=== PATIENT | male | born 1945 | race Caucasian/White ===

== ENCOUNTER 2021-07-26 08:56 | Day surgery (SDC) | payer OTHER, SELFPAY ==
[2021-07-20 13:15] VITALS: BMI 32.2
--- NOTE | 2021-07-25 10:31 | P.CONAN_ITS ---
Documented by User: Kiera Mcintosh NP 07/25/21 10:31 HPI - Anesthesia Eval Consult details Narrative: 76yo M for Colonoscopy hx of throat ca with surgery PMFSH Past Medical History Medical History (Updated 07/26/21 @ 10:07 by Bianca Burt RN) Asymptomatic PVCs GERD (gastroesophageal reflux disease) PVCs (premature ventricular contractions) Skin cancer Throat cancer Surgical History Surgical History (Updated 07/20/21 @ 13:15 by Pati Vásquez RN) History of appendectomy History of local excision of skin lesion Hx of colonoscopy Hx of endoscopy Hx of surgical procedure Social History Social History Patient Tobacco Use Status: Former Tobacco user Tobacco use type: Cigarette Use of substances other than those prescribed or required for medical reasons: Yes Substance Use Type Other:: drinks 6 beers a week Are you DNR?: No Advance Directives: No Advance Directives Information Provided: Yes Nutrition Risks: No Nutritional Risk Meds Allergies Allergy/AdvReac Type Severity Reaction Status Date / Time amoxicillin Allergy Unknown Verified 07/26/21 09:37 Iodinated Contrast Media Allergy Hives Verified 07/26/21 09:37 [IV Contrast Dye] iohexol [From Omnipaque] Allergy Unknown Verified 07/26/21 09:37 lisinopril [From Zestril] Allergy Unknown Verified 07/26/21 09:37 Penicillins [PCN] Allergy Unknown Verified 07/26/21 09:37 sulfamethoxazole Allergy Unknown Verified 07/26/21 09:37 [From Bactrim] trimethoprim [From Bactrim] Allergy Unknown Verified 07/26/21 09:37 Home Medications Medication Instructions Recorded Confirmed Last Taken Type fluoride (sodium) 1.1 % dental PO DAILY 07/20/21 07/20/21 Unknown History paste (Sodium Fluoride 5000 Dry Mouth) lactobacillus comb no.10 20 20,000 mmu cells PO DAILY 07/20/21 07/20/21 Unknown History billion cell capsule (Probiotic) kgmwnfpqkdao-jeirfwfy-ymorsa tablet 1 tab PO DAILY 07/20/21 07/20/21 Unknown History omeprazole 20 mg capsule,delayed 1 cap PO BID 07/20/21 07/20/21 07/26/21 History release rosuvastatin 20 mg tablet 1 tab PO DAILY 07/20/21 07/20/21 Unknown History trazodone 50 mg tablet 1 tab PO BEDTIME 07/20/21 07/20/21 Unknown History Exam Exam Date and Time: July 25, 2021 1031 Height,Weight and Vital Signs: Height 5 ft 8 in Weight 96.162 kg Assessment and Plan Assessment Anesthesia Assessment: Chart Reviewed Documented by User: Pablo Jones MD 07/26/21 17:25 HPI - Anesthesia Eval Consult details Narrative: 76yo M for Colonoscopy As per patient history of PVC s , asymptomatic , saw regulatory affairs spec 5 years , no further workup . JAVIER on CPAP . s/p vocal card surgery hx of throat ca PMFSH Past Medical History Medical History (Updated 07/26/21 @ 10:07 by Bianca Burt RN) Asymptomatic PVCs GERD (gastroesophageal reflux disease) PVCs (premature ventricular contractions) Skin cancer Throat cancer Functional capacity: independent ambulation Family History Family history of problems with anesthesia: No Surgical History Surgical History (Updated 07/20/21 @ 13:15 by Pati Vásquez RN) History of appendectomy History of local excision of skin lesion Hx of colonoscopy Hx of endoscopy Hx of surgical procedure History of Problems with Anesthesia: No Social History Social History Patient Tobacco Use Status: Former Tobacco user Tobacco use type: Cigarette Use of substances other than those prescribed or required for medical reasons: Yes Substance Use Type Other:: drinks 6 beers a week Are you DNR?: No Advance Directives: No Advance Directives Information Provided: Yes Nutrition Risks: No Nutritional Risk Meds Allergies Allergy/AdvReac Type Severity Reaction Status Date / Time amoxicillin Allergy Unknown Verified 07/26/21 09:37 Iodinated Contrast Media Allergy Hives Verified 07/26/21 09:37 [IV Contrast Dye] iohexol [From Omnipaque] Allergy Unknown Verified 07/26/21 09:37 lisinopril [From Zestril] Allergy Unknown Verified 07/26/21 09:37 Penicillins [PCN] Allergy Unknown Verified 07/26/21 09:37 sulfamethoxazole Allergy Unknown Verified 07/26/21 09:37 [From Bactrim] trimethoprim [From Bactrim] Allergy Unknown Verified 07/26/21 09:37 Home Medications Medication Instructions Recorded Confirmed Last Taken Type fluoride (sodium) 1.1 % dental PO DAILY 07/20/21 07/20/21 Unknown History paste (Sodium Fluoride 5000 Dry Mouth) lactobacillus comb no.10 20 20,000 mmu cells PO DAILY 07/20/21 07/20/21 Unknown History billion cell capsule (Probiotic) ulcusfdmlpsa-qfzmaxvt-upifsi tablet 1 tab PO DAILY 07/20/21 07/20/21 Unknown History omeprazole 20 mg capsule,delayed 1 cap PO BID 07/20/21 07/20/21 07/26/21 History release rosuvastatin 20 mg tablet 1 tab PO DAILY 07/20/21 07/20/21 Unknown History trazodone 50 mg tablet 1 tab PO BEDTIME 07/20/21 07/20/21 Unknown History Exam Airway Mallampati Class: III TM Dist: >3cm Neck ROM: Full Loose/Missing/Broken Teeth: Yes (Chipped , cap ) Heart: rrr Lungs: bl breath sounds Assessment and Plan Assessment Anesthesia Assessment: Anesthesia Plan Discussed Final Anesthetic Review Family History of Problems with Anesthesia: No History of Problems with Anesthesia: No NPO: Yes ASA Class: III Patient Risk: Intermediate Procedure Risk: Intermediate Anesthetic Plan Anesthetic Plan: MAC: Disposition: Standard PACU
[2021-07-26 09:31] VITALS: BMI 31.9
[2021-07-26 09:44] VITALS: BP 151/83; PULSE 87; RESP 16; TEMP 36.9; O2SAT 95
--- NOTE | 2021-07-26 09:54 | ECG_ITS ---
Test Reason : irreg heartbeat Blood Pressure : / mmHG Vent. Rate : 080 BPM Atrial Rate : 080 BPM P-R Int : 138 ms QRS Dur : 086 ms QT Int : 372 ms P-R-T Axes : 059 002 012 degrees QTc Int : 429 ms Sinus rhythm with frequent Premature ventricular complexes Poor R progression anteriorly; cannot exclude old anterior infarct, but could be from body habitus/lead placement Abnormal ECG No previous ECGs available Referred By: Pablo Jones Electronically Signed By:MAYELIN ROBERTS
[2021-07-26] MEDS: Lactated Ringers 1,000 ML 80 ML IVCONT (10:02)
--- NOTE | 2021-07-26 10:04 | PC.NURSE ---
PATIENT STATES HE HAS AN EXTRA HEART BEAT BUT UNKNOWN OF WHAT KIND. USUALLY SEEN AT [facility]. BASELINE EKG BEING PERFORMED. ASYMPTOMATIC. MD [facility]ARK AWARE. PATIENT STATES IT WAS TOLD TO HIM 5 YEARS AGO BUT NOTHING WAS NEEDED TO BE DONE.
--- NOTE | 2021-07-26 10:28 | MHC.SHP ---
Pre-Procedural Eval Section A Date of Service: 07/26/21 The patient is an INPATIENT: No Changes since office visit: No Cold of Flu in the past 2 weeks, No New Medical Problems, No Changes in Medication and No Patient answered all questions The History & Physical has been completed within 30 days and I have reviewed it.: Yes Section B Chief Complaint: screening Allergies: Allergies Allergy/AdvReac Type Severity Reaction Status Date / Time amoxicillin Allergy Unknown Verified 07/26/21 09:37 Iodinated Contrast Media Allergy Hives Verified 07/26/21 09:37 [IV Contrast Dye] iohexol [From Omnipaque] Allergy Unknown Verified 07/26/21 09:37 lisinopril [From Zestril] Allergy Unknown Verified 07/26/21 09:37 Penicillins [PCN] Allergy Unknown Verified 07/26/21 09:37 sulfamethoxazole Allergy Unknown Verified 07/26/21 09:37 [From Bactrim] trimethoprim [From Bactrim] Allergy Unknown Verified 07/26/21 09:37 Plan I have reviewed the history and physical and performed a pertinent physical examination on my patient. No changes have occurred unless specified.
--- NOTE | 2021-07-26 11:32 | P.BOP_ITS ---
Brief Operative Note Date of Service: 07/26/21 Pre-op diagnosis: screening Post-op diagnosis: same (colon polyps) Procedure: colonoscopy Surgeon: Aime Mauro Anesthesia: MAC Was an Pharmacist Intern used for this Procedure?: No Estimated blood loss (mL): 5 Pathology: other (multiple polyps) Condition: stable Disposition: PACU
[2021-07-26 11:39] VITALS: BP 114/69; PULSE 95; RESP 17; TEMP 36.4; O2SAT 96
[2021-07-26 11:54] VITALS: BP 123/80; PULSE 86; RESP 18; TEMP 36.4; O2SAT 97
--- NOTE | 2021-07-26 12:23 | OP_ITS ---
SURGEON: Aime Mauro MD INDICATIONS: Colon cancer screening and prior history of adenomatous colon polyps. PREOPERATIVE DIAGNOSIS: POSTOPERATIVE DIAGNOSIS: PROCEDURE PERFORMED: Colonoscopy to the terminal ileum with snare polypectomy. ESTIMATED BLOOD LOSS: COMPLICATIONS: ANESTHESIA: ASSISTANTS: SPECIMENS: MEDICATIONS: Monitored anesthesia care. DESCRIPTION OF PROCEDURE: History and physical were performed. The risks and benefits of the procedure were explained to the patient. Informed consent was obtained. The patient was placed in the left lateral decubitus position. A digital rectal exam was performed and was found to be normal. The Olympus pediatric video colonoscope was introduced into the rectum and advanced to the cecum without difficulty. The cecum was identified by transillumination, palpation, and identification of ileocecal valve. Examination was performed. The scope was removed. He tolerated the procedure well and was sent to recovery area in stable condition. FINDINGS: The terminal ileum was normal. The visualized colonic mucosa was normal. Multiple colonic polyps were present. At 75 cm, 1 polyp was snared measuring 6 mm. At 65 cm, 3 polyps were snared measuring 8 mm or less. At 50 cm was a 6 mm polyp, which was snared. At 45 cm a less than 5 mm polyp was removed with a snare. In the rectum were 3 polyps, the largest measured approximately 12 mm, this was snared, 2 less than 10 mm polyps were also snared. There was sigmoid diverticulosis. The prep was good. IMPRESSION: Colon polyps. RECOMMENDATION: Follow up the biopsy results. MD SHERRI Delgado/MARTI / [id number] [facility]INE HOSPITALNathalie
== END 2021-07-26 12:31 | disposition home or self-care (01) ==
PROVIDERS: PCP Internal Medicine; Visit Provider Internal Medicine Gastroenterology
PROC: 0DJD8ZZ Inspection of Lower Intestinal Tract, Via Natural or Artificial Opening Endoscopic (ICD-10-PCS; CPT 45378; principal; 2021-07-26 10:20)
DX: Z12.11 Encounter for screening for malignant neoplasm of colon (principal); Z86.010 Personal history of colon polyps; D12.0 Benign neoplasm of cecum; D12.4 Benign neoplasm of descending colon; D12.5 Benign neoplasm of sigmoid colon; D12.8 Benign neoplasm of rectum; K57.30 Diverticulosis of large intestine without perforation or abscess without bleeding; K21.9 Gastro-esophageal reflux disease without esophagitis; I49.3 Ventricular premature depolarization; Z79.899 Other long term (current) drug therapy; Z85.828 Personal history of other malignant neoplasm of skin; Z85.819 Personal history of malignant neoplasm of unspecified site of lip, oral cavity, and pharynx; Z98.890 Other specified postprocedural states; Z87.891 Personal history of nicotine dependence
CPT/HCPCS: 45385; 88305; 93005

== ENCOUNTER 2023-06-08 10:39 | Day surgery (SDC) | payer OTHER, SELFPAY ==
[2023-06-06 13:05] VITALS: BMI 28.9
--- NOTE | 2023-06-07 11:00 | P.CONAN_ITS ---
HPI - Anesthesia Eval Consult details Narrative: 78yo M for Colonoscopy From 2021 anesthesia preop eval: per patient history of PVC s , asymptomatic , saw social media coordinator 5 years , no further workup . JAVIER on CPAP . s/p vocal card surgery d/t throat ca PMFSH Past Medical History Medical History (Updated 07/26/21 @ 10:07 by Bianca Burt RN) Asymptomatic PVCs PVCs (premature ventricular contractions) GERD (gastroesophageal reflux disease) Throat cancer Skin cancer Family History Family history of problems with anesthesia: No Surgical History Surgical History (Updated 06/06/23 @ 13:06 by Rupa Dominique RN) Hx of surgical procedure History of appendectomy History of local excision of skin lesion Hx of colonoscopy Hx of endoscopy History of Problems with Anesthesia: No Social History Social History (Updated 06/06/23 @ 13:06 by Rupa Dominique RN) Patient Tobacco Use Status: Former Tobacco user Quit Date: >10 yr ago Tobacco use type: Cigarette Meds Allergies Allergy/AdvReac Type Severity Reaction Status Date / Time amoxicillin Allergy Unknown Verified 07/26/21 09:37 Iodinated Contrast Media Allergy Hives Verified 07/26/21 09:37 [IV Contrast Dye] iohexol [From Omnipaque] Allergy Unknown Verified 07/26/21 09:37 lisinopril [From Zestril] Allergy Unknown Verified 07/26/21 09:37 Penicillins [PCN] Allergy Unknown Verified 07/26/21 09:37 sulfamethoxazole Allergy Unknown Verified 07/26/21 09:37 [From Bactrim] trimethoprim [From Bactrim] Allergy Unknown Verified 07/26/21 09:37 Home Medications Medication Instructions Recorded Confirmed Last Taken Type lactobacillus comb no.10 20 20,000 mmu cells PO DAILY 07/20/21 06/06/23 Unknown History billion cell capsule (Probiotic) utpayessgsnz-uxzxmgdw-jzvrqn tablet 1 tab PO DAILY 07/20/21 06/06/23 Unknown History albuterol sulfate 90 mcg/actuation 2 puff inhalation Q4H PRN wheezing 06/06/23 06/06/23 Unknown History aerosol inhaler amlodipine 5 mg tablet 5 mg PO DAILY 06/06/23 06/06/23 Unknown History atorvastatin 40 mg tablet 40 mg PO DAILY 06/06/23 06/06/23 Unknown History budesonide-formoterol HFA 80 2 puff inhalation BID 06/06/23 06/06/23 Unknown History mcg-4.5 mcg/actuation aerosol inhaler (Symbicort) magnesium 250 mg tablet 250 mg PO DAILY 06/06/23 06/06/23 Unknown History nintedanib 150 mg capsule (Ofev) 150 mg PO BID 06/06/23 06/06/23 Unknown History omeprazole 40 mg capsule,delayed 40 mg PO DAILY 06/06/23 06/06/23 Unknown History release trazodone 50 mg tablet 50 mg PO BEDTIME 06/06/23 06/06/23 Unknown History Exam Height,Weight and Vital Signs: Height 5 ft 8 in Weight 86.183 kg Narrative Narrative: EKG 2021. Rate : 080 BPM Atrial Rate : 080 BPM P-R Int : 138 ms QRS Dur : 086 ms QT Int : 372 ms P-R-T Axes : 059 002 012 degrees QTc Int : 429 ms Sinus rhythm with frequent Premature ventricular complexes Poor R progression anteriorly; cannot exclude old anterior infarct, but could be from body habitus/lead placement Abnormal ECG No previous ECGs available Assessment and Plan Assessment Anesthesia Assessment: Chart Reviewed Final Anesthetic Review Family History of Problems with Anesthesia: No History of Problems with Anesthesia: No
[2023-06-08 10:47] VITALS: BMI 30.2
[2023-06-08] MEDS: Lactated Ringers 1,000 ML 80 ML IVCONT (10:59)
[2023-06-08 11:00] VITALS: BP 164/83; PULSE 85; RESP 18; TEMP 36.7; O2SAT 100
--- NOTE | 2023-06-08 11:03 | MHC.SHP ---
Pre-Procedural Eval Section A Date of Service: 06/08/23 The patient is an INPATIENT: No Changes since office visit: No Cold of Flu in the past 2 weeks, No New Medical Problems, No Changes in Medication and No Patient answered all questions The History & Physical has been completed within 30 days and I have reviewed it.: Yes Section B Chief Complaint: Other fecal abnormalities Allergies: Allergies Allergy/AdvReac Type Severity Reaction Status Date / Time amoxicillin Allergy Unknown Verified 06/08/23 10:59 Iodinated Contrast Media Allergy Hives Verified 06/08/23 10:59 [IV Contrast Dye] iohexol [From Omnipaque] Allergy Unknown Verified 06/08/23 10:59 lisinopril [From Zestril] Allergy Unknown Verified 06/08/23 10:59 Penicillins [PCN] Allergy Unknown Verified 06/08/23 10:59 sulfamethoxazole Allergy Unknown Verified 06/08/23 10:59 [From Bactrim] trimethoprim [From Bactrim] Allergy Unknown Verified 06/08/23 10:59 Plan I have reviewed the history and physical and performed a pertinent physical examination on my patient. No changes have occurred unless specified. Time Spent With Patient Time: Total time managing care of this patient today ____ minutes.
[2023-06-08 11:47] VITALS: BP 97/55; PULSE 72; RESP 16; TEMP 36.7; O2SAT 97
[2023-06-08 11:52] VITALS: BP 100/61; PULSE 71; RESP 16; O2SAT 96
[2023-06-08 11:57] VITALS: BP 108/57; PULSE 75; RESP 16; O2SAT 96
[2023-06-08 12:02] VITALS: BP 121/71; PULSE 72; RESP 16; TEMP 36.7; O2SAT 97
--- NOTE | 2023-06-08 12:19 | OP_ITS ---
DATE OF SERVICE: 06/08/2023 SURGEON: Aime Mauro MD INDICATIONS: Abnormal findings in stool. PREOPERATIVE DIAGNOSIS: POSTOPERATIVE DIAGNOSIS: PROCEDURE PERFORMED: Colonoscopy to the terminal ileum. ESTIMATED BLOOD LOSS: COMPLICATIONS: ANESTHESIA: Monitored anesthesia care. ASSISTANTS: SPECIMENS: DESCRIPTION OF PROCEDURE: History and physical performed, the risks and benefits of the procedure were explained to the patient. Informed consent was obtained. The patient was placed in the left lateral decubitus position. A digital rectal exam was performed and was found to be normal. The Olympus pediatric video colonoscope was introduced into the rectum and advanced to the cecum. The cecum was identified by transillumination, palpation, and identification of the ileocecal valve. Examination was performed and the scope was removed. He tolerated the procedure well and was taken to recovery in stable condition. Abdominal wall pressure was used to assist in advancement of the scope. FINDINGS: The terminal ileum was examined and appeared normal. The visualized colonic mucosa was normal. The quality of the prep was good. There was bond diverticulosis. No polyps were identified. Retroflexed examination showed moderate-sized internal hemorrhoids. IMPRESSION: Normal colonoscopy. RECOMMENDATIONS: 1. Follow up as needed. 2. Repeat colonoscopy for screening purposes is not recommended based on the patient's age. MD SHERRI Delgado/OLIVERIOL / [id number]
== END 2023-06-08 12:43 | disposition home or self-care (01) ==
PROVIDERS: PCP Internal Medicine; Visit Provider Internal Medicine Gastroenterology
PROC: 0DJD8ZZ Inspection of Lower Intestinal Tract, Via Natural or Artificial Opening Endoscopic (ICD-10-PCS; CPT 45378; principal; 2023-06-08 12:20)
DX: R19.5 Other fecal abnormalities (principal); K64.8 Other hemorrhoids; Z87.891 Personal history of nicotine dependence; Z85.828 Personal history of other malignant neoplasm of skin; Z85.21 Personal history of malignant neoplasm of larynx
CPT/HCPCS: 45378; J2704